=== PATIENT | female | born 1955 | race Caucasian/White ===

== ENCOUNTER 2018-11-02 10:07 | Inpatient (IN) | payer OTHER ==
[2018-11-02] MEDS: NITROGLYCERIN 2% 1 GM OINT PKT TD (10:38)
[2018-11-02] MEDS: NITROGLYCERIN (SL) 0.4 MG TAB SL (10:38)
[2018-11-02] MEDS: ASPIRIN 81 MG TAB PO (10:38)
[2018-11-02 10:59] LABS: ADD MAN DIFF? NO
[2018-11-02 11:03] LABS: BASOPHIL # 0.1 10^3/ul (0.0-0.1); BASOPHILS % 0.3 % (0.0-2.0); EOSINOPHILS # 0.4 10^3/ul (0.0-0.5); EOSINOPHILS % 2.5 % (0.0-7.0); HEMATOCRIT 35.9 % (37.0-47.0); HEMOGLOBIN 11.1 g/dl (12.0-16.0); LYMPHOCYTES # 2.7 10^3/ul (0.8-2.9); LYMPHOCYTES % 17.7 % (15.0-51.0); MEAN CORPUSCULAR HEMOGLOBIN 25.5 pg (29.0-33.0); MEAN CORPUSCULAR HGB CONC 30.9 g/dl (32.0-37.0); MEAN CORPUSCULAR VOLUME 82.3 fl (82.0-101.0); MEAN PLATELET VOLUME 10.6 fl (7.4-10.4); MONOCYTE # 0.7 10^3/ul (0.3-0.9); MONOCYTES % 4.8 % (0.0-11.0); NEUTROPHIL # 11.2 10^3/ul (1.6-7.5); NEUTROPHILS % 74.3 % (39.0-77.0); PLATELET COUNT 423 10^3/UL (140-415); RED BLOOD COUNT 4.36 10^6/ul (4.20-5.40); RED CELL DISTRIBUTION WIDTH 13.6 % (11.5-14.5)
[2018-11-02 11:03] LABS: WHITE BLOOD COUNT 15.1 10^3/ul (4.8-10.8)
[2018-11-02 11:21] LABS: ANION GAP 14 (5-13); BLOOD UREA NITROGEN 19 mg/dl (7-20); CALCIUM 9.8 mg/dl (8.4-10.2); CARBON DIOXIDE 24 mmol/L (21-31); CHLORIDE 103 mmol/L (97-110); CREATININE 0.69 mg/dl (0.44-1.00); Estimated GFR > 60 mL/min (>60); GLUCOSE 199 mg/dl (70-220); POTASSIUM 4.2 mmol/L (3.5-5.1); SODIUM 141 mmol/L (135-144)
[2018-11-02] MEDS ORDERED: ACETAMINOPHEN 325 MG TAB PO ×2 (12:00→15:30)
[2018-11-02] MEDS ORDERED: ONDANSETRON 4 MG INJ IV ×2 (12:00→13:00)
[2018-11-02] MEDS: ENOXAPARIN 40 MG/0.4 ML SYG SC ×2 (12:04→13:00)
[2018-11-02] MEDS ORDERED: NITROGLYCERIN (SL) 0.4 MG TAB SL (13:00)
[2018-11-02] MEDS ORDERED: ZOLPIDEM 5 MG TAB PO (13:00)
[2018-11-02] MEDS ORDERED: NACL 0.9% 3 ML SYG IV (13:00)
[2018-11-02] MEDS ORDERED: LIDOCAINE 1% (MDV) 20 ML INJ (13:59)
[2018-11-02] MEDS ORDERED: HEPARIN 1000 UNITS/ML 10 ML INJ (13:59)
[2018-11-02] MEDS ORDERED: FENTAnyl 50 MCG/ML VIAL (13:59)
[2018-11-02] MEDS ORDERED: MIDAZOLAM 1 MG/ML 2 ML INJ (13:59)
[2018-11-02] MEDS ORDERED: NITROGLYCERIN (IC) 100 MCG/ML INJ (13:59)
[2018-11-02] MEDS ORDERED: IODIXANOL LOCM 100 ML BTL (13:59)
[2018-11-02] MEDS ORDERED: VERAPAMIL 5 MG INJ (13:59)
[2018-11-02] MEDS ORDERED: BIVALIRUDIN 250MG /NS 50 ML 50 ML IVPB ×2 (14:27→15:26)
[2018-11-02] MEDS ORDERED: IOHEXOL 350MG/ML 50 ML BTL (14:27)
[2018-11-02] MEDS ORDERED: SOD CHLORIDE 0.9% 500 ML (14:27)
[2018-11-02] MEDS ORDERED: TICAGRELOR 90 MG TABLET (14:28)
[2018-11-02] MEDS ORDERED: ASPIRIN 81 MG TAB (14:29)
[2018-11-02] MEDS ORDERED: GLUCOSE GEL 15 GRAM TUBE BUCCAL (15:00)
[2018-11-02] MEDS ORDERED: DEXTROSE 50% 50 ML SYRINGE IV ×2 (15:00)
[2018-11-02] MEDS ORDERED: GLUCAGON 1 MG INJ IM (15:00)
[2018-11-02] MEDS ORDERED: GLUCOSE GEL 15 GRAM TUBE PO ×2 (15:00)
[2018-11-02] MEDS: ACETAMINOPHEN 325 MG TAB PO (16:38)
[2018-11-02] MEDS: METOPROLOL 25 MG TAB PO ×2 (16:38→22:03)
[2018-11-02] MEDS: SOD CHLORIDE 0.9% 1,000 ML IV (16:43)
[2018-11-02] MEDS: BIVALIRUDIN 250MG /NS 50 ML 50 ML IVPB ×2 (16:50→19:01)
[2018-11-02] MEDS: INSULIN ASPART [NOVOLOG] 3 ML PEN SC ×2 (17:35→21:12)
[2018-11-02] MEDS: ATORVASTATIN 80 MG TAB PO (21:11)
[2018-11-02] MEDS: TICAGRELOR 90 MG TABLET PO (21:12)
[2018-11-03] MEDS: ACCU-CHEK XX (02:00)
[2018-11-03 05:06] LABS: ADD MAN DIFF? NO
[2018-11-03] MEDS: METOPROLOL 25 MG TAB PO ×2 (05:13→12:16)
[2018-11-03 05:14] LABS: WHITE BLOOD COUNT 12.3 10^3/ul (4.8-10.8)
[2018-11-03 05:14] LABS: BASOPHILS % 0.3 % (0.0-2.0); EOSINOPHILS # 0.2 10^3/ul (0.0-0.5); EOSINOPHILS % 1.5 % (0.0-7.0); HEMATOCRIT 32.6 % (37.0-47.0); HEMOGLOBIN 10.3 g/dl (12.0-16.0); LYMPHOCYTES # 2.3 10^3/ul (0.8-2.9); LYMPHOCYTES % 18.8 % (15.0-51.0); MEAN CORPUSCULAR HEMOGLOBIN 25.9 pg (29.0-33.0); MEAN CORPUSCULAR HGB CONC 31.6 g/dl (32.0-37.0); MEAN CORPUSCULAR VOLUME 82.1 fl (82.0-101.0); MEAN PLATELET VOLUME 10.8 fl (7.4-10.4); MONOCYTE # 1.1 10^3/ul (0.3-0.9); MONOCYTES % 8.6 % (0.0-11.0); NEUTROPHIL # 8.7 10^3/ul (1.6-7.5); NEUTROPHILS % 70.3 % (39.0-77.0); PLATELET COUNT 382 10^3/UL (140-415); RED BLOOD COUNT 3.97 10^6/ul (4.20-5.40); RED CELL DISTRIBUTION WIDTH 13.7 % (11.5-14.5)
[2018-11-03 05:39] LABS: CHOLESTEROL 162 mg/dl (100-200)
[2018-11-03 05:39] LABS: CHOL/HDL RATIO 4.7 RATIO; HDL CHOLESTEROL 34 mg/dl (35-98); LDL CHOLESTEROL,CALCULATED 73 mg/dl; TRIGLYCERIDES 277 mg/dl (0-149)
[2018-11-03 05:42] LABS: ANION GAP 10 (5-13); BLOOD UREA NITROGEN 12 mg/dl (7-20); CALCIUM 9.2 mg/dl (8.4-10.2); CARBON DIOXIDE 23 mmol/L (21-31); CHLORIDE 107 mmol/L (97-110); CREATININE 0.57 mg/dl (0.44-1.00); Estimated GFR > 60 mL/min (>60); GLUCOSE 261 mg/dl (70-220); POTASSIUM 4.2 mmol/L (3.5-5.1); SODIUM 140 mmol/L (135-144)
[2018-11-03 05:51] LABS: HEMOGLOBIN A1C 7.5 % (0-5.9)
[2018-11-03] MEDS: ASPIRIN 81 MG TAB PO (08:38)
[2018-11-03] MEDS: TICAGRELOR 90 MG TABLET PO (08:40)
[2018-11-03] MEDS: ENOXAPARIN 40 MG/0.4 ML SYG SC (08:41)
[2018-11-03] MEDS: INSULIN ASPART [NOVOLOG] 3 ML PEN SC ×2 (08:42→12:22)
[2018-11-03] MEDS ORDERED: INSULIN ASPART [NOVOLOG] 3 ML PEN SC (11:30)
[2018-11-03] MEDS ORDERED: INSULIN GLARGINE [LANTus] (100 UNITS/ML) SYG SC (20:00)
[2018-11-03] MEDS ORDERED: METOPROLOL 50 MG TAB PO (21:00)
[2018-11-04] MEDS ORDERED: LISINOPRIL 5 MG TAB PO (09:00)
[2018-11-05] MEDS ORDERED: INFLUENZA VIRUS VACCINE 0.5 ML (DISPENSING) IM* (09:00)
== END 2018-11-03 13:53 | disposition home health service (06) | DRG 247 ==
LOC: E/R 10:07 → REC 11:51 → ICU 15:48
PROC: 027135Z Dilation of Coronary Artery, Two Arteries with Two Drug-eluting Intraluminal Devices, Percutaneous Approach (ICD-10-PCS; principal; 2018-11-02 12:30)
PROC: 4A023N7 Measurement of Cardiac Sampling and Pressure, Left Heart, Percutaneous Approach (ICD-10-PCS; 2018-11-02 12:30)
DX: I21.4 Non-ST elevation (NSTEMI) myocardial infarction (principal); I25.119 Atherosclerotic heart disease of native coronary artery with unspecified angina pectoris; E11.9 Type 2 diabetes mellitus without complications; I10 Essential (primary) hypertension; E78.5 Hyperlipidemia, unspecified
CPT/HCPCS: 71045; 80048; 80061; 82962; 83036; 84484; 85025; 87040; 87081; 92928; 92929; 93005; 93306; 93458; 99291-25

== ENCOUNTER 2018-11-18 13:26 | Emergency (ER) | payer OTHER ==
[2018-11-18 17:10] LABS: ADD UMIC YES; UR ASCORBIC ACID NEGATIVE (NEGATIVE); UR BACTERIA MANY /HPF (NONE SEEN); UR BILIRUBIN (Dip) NEGATIVE (NEGATIVE); UR BLOOD (Dip) 3+ mg/dL (NEGATIVE); UR CLARITY CLOUDY (CLEAR); UR COLOR AMBER (YELLOW); UR GLUCOSE (Dip) 3+ mg/dL (NEGATIVE); UR KETONES (Dip) TRACE mg/dL (NEGATIVE); UR LEUKOCYTE ESTERASE (Dip) 1+ Leu/ul (NEGATIVE); UR NITRITE (Dip) POSITIVE (NEGATIVE); UR RBC > 182 /HPF (0-5); UR SPECIFIC GRAVITY (Dip) 1.026 (1.003-1.030); UR TOTAL PROTEIN (Dip) 1+ mg/dl (NEGATIVE); UR UROBILINOGEN (Dip) NEGATIVE (NEGATIVE); UR WBC 119 /HPF (0-5)
[2018-11-18] MEDS: NITROFURANTOIN (SR) 100 MG CAP PO (18:34)
[2018-11-18] MEDS: PHENAZOPYRIDINE 100 MG TAB PO (18:34)
== END 2018-11-18 18:46 | disposition home or self-care (01) ==
LOC: E/R 13:26
DX: N30.91 Cystitis, unspecified with hematuria (principal); I10 Essential (primary) hypertension; E11.9 Type 2 diabetes mellitus without complications; I25.10 Atherosclerotic heart disease of native coronary artery without angina pectoris; F17.210 Nicotine dependence, cigarettes, uncomplicated; Z79.82 Long term (current) use of aspirin; Z79.4 Long term (current) use of insulin; Z98.61 Coronary angioplasty status
CPT/HCPCS: 81001; 99283